=== PATIENT | female | born 1985 | race American Indian/Alaskan Native ===

== ENCOUNTER 2018-07-09 15:00 | Emergency (ER) | payer MEDICAID ==
--- NOTE | 2018-07-09 15:43 | Emergency Department Report ---
Chief Complaint: Dental/Oral Stated Complaint: TOOTHACHE/EARACHE Time Seen by Provider: 07/09/18 15:41 - HPI History of Present Illness: This is a 32 y.o. female that presents with toothache for 1 week. Patient states she was scheduled to have 3 extractions but recently found out she was . She is taking Tylenol with no improvement of symptoms. Denies sore throat or difficulty swallowing. - Exam Vital Signs: Vital Signs 07/09/18 15:40 Temperature 98 F Pulse Rate 82 Respiratory 16 Rate Blood Pressure 117/82 O2 Sat by Pulse 100 Oximetry MSE screening note: Focused history and physical exam performed. Due to findings the following was ordered: ACC for further evaluation. ED Disposition for MSE Condition: Stable
[2018-07-09 15:44] VITALS: BP 117/82
--- NOTE | 2018-07-09 17:15 | Emergency Department Report ---
ED ENT HPI - General Chief complaint: Dental/Oral Stated complaint: TOOTHACHE/EARACHE Time Seen by Provider: 07/09/18 15:41 Source: patient Mode of arrival: Ambulatory Limitations: No Limitations - History of Present Illness Initial comments: Patient is a 32-year-old female presenting with several weeks of right sided lower jaw pain. Patient has poor dentition. Patient's tried to contact her [employer] dentist but has been unsuccessful getting appointment. Patient is one month . Patient is having no nausea vomiting or lower abdominal pain or vaginal bleeding. Patient states pain in the mouth is an 8 out of 10 in severity. She has no difficulty swallowing at this time. - Related Data Previous Rx's Medication Instructions Recorded Last Taken Type Acetaminophen/Codeine 1 tab PO Q6H PRN #14 tab 01/03/14 Unknown Rx [Acetaminophen-Codeine #3 TAB] Promethazine [Phenergan] 25 mg PO Q6H PRN #20 tablet 01/03/14 Unknown Rx Sulfamethoxazole/Trimethoprim 1 each PO BID #14 tablet 01/03/14 Unknown Rx [Bactrim Ds] Bacitracin Zinc Oint 1 applicatio TP TID #1 tube 11/05/14 Unknown Rx cephALEXin [Keflex] 250 mg PO Q6HR #20 capsule 11/05/14 Unknown Rx traMADol [Ultram 50 MG tab] 50 mg PO Q8HR PRN #20 tablet 11/05/14 Unknown Rx Amoxicillin [Amoxicillin TAB] 875 mg PO BID #20 tablet 04/12/15 Unknown Rx Fluticasone [Flonase] 1 spray NS QDAY #1 bottle 04/12/15 Unknown Rx predniSONE [Deltasone] 50 mg PO QDAY #5 tab 04/12/15 Unknown Rx Penicillin V Potassium 500 mg PO BID #14 tablet 07/09/18 Unknown Rx Allergies Allergy/AdvReac Type Severity Reaction Status Date / Time No Known Allergies Allergy Verified 07/09/18 15:10 ED Dental HPI - General Chief complaint: Dental/Oral Stated complaint: TOOTHACHE/EARACHE Time Seen by Provider: 07/09/18 15:41 Source: patient Mode of arrival: Ambulatory Limitations: No Limitations - Related Data Previous Rx's Medication Instructions Recorded Last Taken Type Acetaminophen/Codeine 1 tab PO Q6H PRN #14 tab 01/03/14 Unknown Rx [Acetaminophen-Codeine #3 TAB] Promethazine [Phenergan] 25 mg PO Q6H PRN #20 tablet 01/03/14 Unknown Rx Sulfamethoxazole/Trimethoprim 1 each PO BID #14 tablet 01/03/14 Unknown Rx [Bactrim Ds] Bacitracin Zinc Oint 1 applicatio TP TID #1 tube 11/05/14 Unknown Rx cephALEXin [Keflex] 250 mg PO Q6HR #20 capsule 11/05/14 Unknown Rx traMADol [Ultram 50 MG tab] 50 mg PO Q8HR PRN #20 tablet 11/05/14 Unknown Rx Amoxicillin [Amoxicillin TAB] 875 mg PO BID #20 tablet 04/12/15 Unknown Rx Fluticasone [Flonase] 1 spray NS QDAY #1 bottle 04/12/15 Unknown Rx predniSONE [Deltasone] 50 mg PO QDAY #5 tab 04/12/15 Unknown Rx Penicillin V Potassium 500 mg PO BID #14 tablet 07/09/18 Unknown Rx Allergies Allergy/AdvReac Type Severity Reaction Status Date / Time No Known Allergies Allergy Verified 07/09/18 15:10 ED Review of Systems ROS: Stated complaint: TOOTHACHE/EARACHE Other details as noted in HPI Comment: All other systems reviewed and negative ED Past Medical Hx - Past Medical History Previous Medical History?: Yes Hx Asthma: Yes Additional medical history: Abscess. - Surgical History Past Surgical History?: No - Social History Smoking Status: Never Smoker Substance Use Type: None - Medications Home Medications: Home Medications Medication Instructions Recorded Confirmed Last Taken Type Acetaminophen/Codeine 1 tab PO Q6H PRN #14 tab 01/03/14 Unknown Rx [Acetaminophen-Codeine #3 TAB] Promethazine [Phenergan] 25 mg PO Q6H PRN #20 tablet 01/03/14 Unknown Rx Sulfamethoxazole/Trimethoprim 1 each PO BID #14 tablet 01/03/14 Unknown Rx [Bactrim Ds] Bacitracin Zinc Oint 1 applicatio TP TID #1 tube 11/05/14 Unknown Rx cephALEXin [Keflex] 250 mg PO Q6HR #20 capsule 11/05/14 Unknown Rx traMADol [Ultram 50 MG tab] 50 mg PO Q8HR PRN #20 tablet 11/05/14 Unknown Rx Amoxicillin [Amoxicillin TAB] 875 mg PO BID #20 tablet 04/12/15 Unknown Rx Fluticasone [Flonase] 1 spray NS QDAY #1 bottle 04/12/15 Unknown Rx predniSONE [Deltasone] 50 mg PO QDAY #5 tab 04/12/15 Unknown Rx Penicillin V Potassium 500 mg PO BID #14 tablet 07/09/18 Unknown Rx ED Physical Exam - General Limitations: No Limitations General appearance: alert, in no apparent distress - Head Head exam: Present: atraumatic, normocephalic - Eye Eye exam: Present: normal appearance - ENT ENT exam: Present: mucous membranes moist - Expanded ENT Exam Expanded Teeth exam: Present: dental caries, dental tenderness # ([id number]) - Neck Neck exam: Present: normal inspection - Respiratory Respiratory exam: Present: normal lung sounds bilaterally. Absent: respiratory distress - Cardiovascular Cardiovascular Exam: Present: regular rate, normal rhythm. Absent: systolic murmur, diastolic murmur, rubs, gallop - GI/Abdominal GI/Abdominal exam: Present: soft, normal bowel sounds - Extremities Exam Extremities exam: Present: normal inspection - Back Exam Back exam: Present: normal inspection - Neurological Exam Neurological exam: Present: alert, oriented X3 - Psychiatric Psychiatric exam: Present: normal affect, normal mood - Skin Skin exam: Present: warm, dry, intact, normal color. Absent: rash ED Course Vital Signs 07/09/18 15:40 Temperature 98 F Pulse Rate 82 Respiratory 16 Rate Blood Pressure 117/82 O2 Sat by Pulse 100 Oximetry ED Medical Decision Making - Medical Decision Making Pt top be started on penVK and she can continue tylenol for pain. pt give additional resources for dentist care Critical care attestation.: If time is entered above; I have spent that time in minutes in the direct care of this critically ill patient, excluding procedure time. ED Disposition Clinical Impression: Dental abscess Disposition: DC- TO HOME OR SELFCARE Is pt being admited?: No Does the pt Need Aspirin: No Condition: Stable Instructions: Dental Abscess (ED) Referrals: MILAGROS MORELOS MD [Primary Care Provider] - 3-5 Days Time of Disposition: 17:14
== END 2018-07-09 17:34 | disposition home or self-care (01) ==
LOC: ED 15:00
DX: K04.7 Periapical abscess without sinus (principal); J45.909 Unspecified asthma, uncomplicated
CPT/HCPCS: 99282

== ENCOUNTER 2018-07-28 09:40 | Emergency (ER) | payer MEDICAID ==
[2018-07-28 10:08] VITALS: BP 123/77
== END 2018-07-28 10:12 | disposition left against medical advice (07) ==
LOC: ED 09:40
DX: R10.9 Unspecified abdominal pain (principal); Z53.21 Procedure and treatment not carried out due to patient leaving prior to being seen by health care provider

== ENCOUNTER 2018-11-06 13:17 | Outpatient (CLI) | payer MEDICAID ==
[2018-11-06] MEDS ORDERED: PYRIDIUM PO ONE (14:20)
[2018-11-06 14:37] LABS: Bilirubin,Urine NEG (Negative); Blood,Urine NEG (Negative); Color,Urine Yellow (Yellow); Protein,Urine <15 mg/dL mg/dL (Negative); Urobilinogen,Urine < 2.0 mg/dL (<2.0)
[2018-11-06 14:44] LABS: Amphetamine Screen,Urine PRESUMPTIVE NEGATIVE; Benzodiazepines Screen,Urine PRESUMPTIVE NEGATIVE; Cannabinoid Screen,Urine PRESUMPTIVE NEGATIVE; Cocaine Screen,Urine PRESUMPTIVE NEGATIVE; Methadone Screen,Urine PRESUMPTIVE NEGATIVE; Opiate Screen,Urine PRESUMPTIVE NEGATIVE
[2018-11-06] MEDS ORDERED: LACTATED RINGERS 1,000 ML ONE (15:17)
[2018-11-06 15:48] VITALS: BP 110/66
[2018-11-06] MEDS ORDERED: LACTATED RINGERS 1,000 ML IV SCH (16:00)
== END 2018-11-06 15:52 | disposition home or self-care (01) ==
LOC: TRG 13:17
PROVIDERS: ATTEND Obstetrics & Gynecology
DX: O26.892 Other specified pregnancy related conditions, second trimester (principal); R10.32 Left lower quadrant pain; O99.512 Diseases of the respiratory system complicating pregnancy, second trimester; J45.909 Unspecified asthma, uncomplicated; Z87.891 Personal history of nicotine dependence; Z3A.21 21 weeks gestation of pregnancy
CPT/HCPCS: 59025; 80307; 81001; J7120